=== PATIENT | male | born 1960 | race American Indian/Alaskan Native ===

== ENCOUNTER → 2022-07-08 12:14 | Outpatient (CLI) | payer OTHER, SELFPAY ==
--- NOTE | 2022-07-08 | DI.ECHO.S_ITS ---
[facility] +---------+ : : [address] : [place] [address] : : : : [id number] : : : : Phone: [phone] +---------+ Echocardiogram Report + + :Name: MARLYN COLLINS Study Date: 07/08/2022 Height: 67.5 in: :[facility] ReadingLocation: Weight: 210 lb : : Gender: Male BSA: 2.1 m2 : :: 1960 Age: 62 yrs BP: 164/99 mmHg: :Reason For Study: ABNORMAL FINIDINGS ON DIAGONIST IMAGING OF : :HEART : :Ordering Physician: KANU, : :BETTE Performed By: Christine Fernandes : :Referring: BETTE BOBBY : + + Interpretation Summary 1) Borderline enlarged left ventricle with mildly reduced systolic function (EF 45-50%). 2) Normal right ventricular size with low normal function. There is a pacemaker lead in the right ventricle. 3) There is a bioprosthetic aortic valve that is well seated and opens well with expected gradient (mean 9mmHg). No aortic regurgitation is present. 4) No prior Echo available for comparison. Procedure: A two-dimensional transthoracic echocardiogram with color flow and Doppler was performed. The study quality was technically adequate. There is no prior echocardiogram noted for this patient. The heart rate ranged between 65-85 bpm during the study. Left Ventricle: The left ventricle is borderline dilated. The estimated left ventricular end diastolic volume is 108 ml. There is normal left ventricular wall thickness. The ejection fraction is estimated to be 45-50%. There is a mild dyssynchronous contraction pattern due to the paced rhythm. Diastolic function could not be accurately assessed due to contradictory data. Right Ventricle: The right ventricle is normal size. There is a pacemaker lead in the right ventricle. Right ventricular systolic function is at the lower limits of normal. Atria: The left atrial size is normal. Right atrial size is normal. There is a catheter/pacemaker lead seen in the right atrium. There is no Doppler evidence for an interatrial shunt. Mitral Valve: The mitral valve leaflets appear borderline thickened, but open well. There is mild mitral regurgitation. Aortic Valve: There is a bioprosthetic aortic valve. The prosthetic aortic valve is well-seated. The prosthetic aortic valve appears to open well. The peak aortic velocity is 1.9 m/sec. The aortic valve mean gradient is 9 mmHg. No aortic regurgitation is present. Tricuspid Valve: The tricuspid valve is normal in structure and function. There is mild tricuspid regurgitation. Pulmonary artery pressures cannot be estimated because of the lack of a measurable TR jet velocity but the IVC suggests a CVP of around 3 mmHg. Pulmonic Valve: The pulmonic valve leaflets are thin and pliable; valve motion is normal. There is mild pulmonic regurgitation. Great Vessels: The aortic root is normal size. The dimensions of the ascending aorta are normal. The IVC is of normal diameter and collapses greater than 50% with a sniff. This suggests a low right atrial pressure of 3 mm Hg. Pericardium/ Pleura There is no pericardial effusion. There is no pleural effusion. MMode/2D Measurements & Calculations LVIDd: 6.2 cm LVOT diam: 2.3 cm LVIDs: 4.8 cm asc Aorta Diam: 3.9 cm FS: 23.3 % Ao Arch Diam (Prox Trans): 3.0 cm IVSd: 0.84 cm LVPWd: 0.83 cm LV christensen. diameter/BSA (cm/m^2): 3.0 LV sys. diameter/BSA (cm/m^2): 2.3 LA A2 area: 18.1 cm2 RA long axis: 5.5 cm LA A4 area: 22.1 cm2 RA area: 18.3 cm2 LA length (vol): 5.8 cm RA vol: 51.6 ml LA vol: 59.0 ml RA : 24.8 ml/m2 LA vol index: 28.4 ml/m2 IVC diam: 1.5 cm RVD1 (basal): 2.8 cm RVD2 (mid): 2.0 cm TAPSE: 1.6 cm Doppler Measurements & Calculations Ao V2 max: 193.2 cm/sec LVOT Max Pradeep: 63.5 cm/sec Ao V2 mean: 141.1 cm/sec LV V1 max P.6 mmHg Ao max P.9 mmHg LV V1 VTI: 13.4 cm Ao mean P.8 mmHg ADAMA(I,D): 1.3 cm2 Ao V2 VTI: 41.3 cm ADAMA(V,D): 1.3 cm2 sev ratio: 0.32 ADAMA indexed to BSA (cm^2/m^2): 0.62 MV E max pradeep: 77.2 cm/sec PA V2 max: 96.3 cm/sec MV A max pradeep: 86.2 cm/sec PA V2 mean: 62.1 cm/sec MV E/A: 0.90 PA mean P.9 mmHg Med Peak E' Pradeep: 4.6 cm/sec PA pr(Accel): 19.1 mmHg E/E' med: 16.6 Lat Peak E' Pradeep: 4.8 cm/sec E/E' lat: 16.1 E/e' average: 16.4 MV dec time: 0.25 sec SV(LVOT): 53.4 ml Reading Physician:02:50 PM
== END ==
PROVIDERS: Referring Provider Family Medicine; Visit Provider Family Medicine
DX: I08.1 Rheumatic disorders of both mitral and tricuspid valves (principal); R93.1 Abnormal findings on diagnostic imaging of heart and coronary circulation; Z95.2 Presence of prosthetic heart valve
CPT/HCPCS: 93306